=== PATIENT | female | born 1945 | race Caucasian/White ===

== ENCOUNTER 2018-05-08 13:42 | Observation (INO) ==
[2018-05-08 15:24] LABS: PT Patient Result 10.4 SECS; Partial Thromboplastin Time 24.6 SECS (0-40)
[2018-05-08 15:34] LABS: % Iron Saturation 1.9 % (18-50); Alanine Aminotransferase 14 U/L (13-56); Albumin 3.7 G/DL (3.4-5.0); Alkaline Phosphatase 41 U/L (45-117); Aspartate Amino Transferase 9 U/L (0-37); Bilirubin,Total < 0.39 MG/DL (0.2-1.0); Blood Urea Nitrogen 15 MG/DL (7-18); Calcium 8.3 MG/DL (8.5-10.1); Ferritin 2.4 ng/ml (8-252); Glucose 83 MG/DL (74-106); Iron 9 UG/DL (50-170); Iron Binding Capacity 486 UG/DL (250-450); Osmolality,Calculated 282.1 MOS/KG (273-304); Potassium 3.8 MMOL/L (3.5-5.1); Sodium 142 MMOL/L (136-145); Total Protein 6.8 G/DL (6.4-8.3)
[2018-05-08 15:39] LABS: Basophils % 0.5 % (0.0-0.8); Eosinophils % 0.7 % (0.00-10.9); Hematocrit 25.7 VOL% (35.7-47.0); Hemoglobin 6.8 GM/DL (12.0-16.0); Immature Granulocytes % 0.5 %; Immature Granulocytes Absolute 0.03 #; Lymphocytes # 1.5 10*3/uL (1.4-4.0); Lymphocytes % 25.1 % (21.3-54.2); Mean Corpuscular HGB Conc 26.5 GM/DL (32-36); Mean Corpuscular Hemoglobin 17 PG (27-34); Mean Corpuscular Volume 63.1 FL (87-102); Mean Platelet Volume 9.6 FL (9.6-12.0); Monocytes # 0.5 10*3/uL (0.11-0.8); Monocytes % 8.5 % (1.7-12.7); Neutrophils # 3.8 10*3/uL (1.4-7.4); Neutrophils % 64.7 % (38.7-73.9); Platelet Count 420 T/CUMM (130-400); Red Blood Count 4.07 MC/CUMM (3.8-5.5); Red Cell Distribution Width 21.7 % (9.3-17.3); White Blood Count 5.9 T/CUMM (4-12)
[2018-05-08] MEDS ORDERED: SODIUM CHLORIDE 0.9% 1,000 ML IV PRN (16:37)
[2018-05-08] MEDS ORDERED: ACETAMINOPHEN 325 MG TABLET PO PRN (16:39)
[2018-05-08] MEDS ORDERED: ONDANSETRON 4 MG/2 ML VIAL IV PRN (16:39)
[2018-05-08] MEDS ORDERED: DICYCLOMINE 10 MG CAPSULE PO PRN (16:46)
[2018-05-08] MEDS ORDERED: traMADol 50 MG TABLET PO PRN (16:46)
[2018-05-08 17:03] LABS: Hypochromasia 2+; Ovalocytes Few; Poikilocytosis Slight; Polychromasia Few
[2018-05-08 17:04] LABS: Microcytosis 1+
[2018-05-08 17:06] LABS: Anisocytosis 1+; Platelet Estimate Normal
[2018-05-08] MEDS: FERROUS SULFATE 325 MG TABLET PO SCH (20:40)
[2018-05-08] MEDS ORDERED: TEMAZEPAM 15 MG CAPSULE PO SCH (21:00)
[2018-05-09 05:16] LABS: Basophils % 0.5 % (0.0-0.8); Eosinophils # 0.1 10*3/uL (0.0-0.87); Eosinophils % 1.3 % (0.00-10.9); Hematocrit 28.8 VOL% (35.7-47.0); Hemoglobin 8.3 GM/DL (12.0-16.0); Immature Granulocytes % 0.2 %; Immature Granulocytes Absolute 0.01 #; Lymphocytes # 1.8 10*3/uL (1.4-4.0); Lymphocytes % 29.2 % (21.3-54.2); Mean Corpuscular HGB Conc 28.8 GM/DL (32-36); Mean Corpuscular Hemoglobin 19 PG (27-34); Mean Corpuscular Volume 67.1 FL (87-102); Mean Platelet Volume 9.6 FL (9.6-12.0); Monocytes # 0.5 10*3/uL (0.11-0.8); Monocytes % 8.6 % (1.7-12.7); Neutrophils # 3.8 10*3/uL (1.4-7.4); Neutrophils % 60.2 % (38.7-73.9); Platelet Count 341 T/CUMM (130-400); Red Blood Count 4.29 MC/CUMM (3.8-5.5); Red Cell Distribution Width 24.9 % (9.3-17.3); White Blood Count 6.3 T/CUMM (4-12)
[2018-05-09 05:32] LABS: Calcium 8.4 MG/DL (8.5-10.1); Osmolality,Calculated 281.3 MOS/KG (273-304); Potassium 4.1 MMOL/L (3.5-5.1)
[2018-05-09 05:39] LABS: Band Neutrophils 1 % (0-10); Eosinophils 1 % (0-10); Hypochromasia 1+; Lymphocytes 26 % (20-55); Platelet Estimate Adequate; Segmented Neutrophils 65 % (50-85); Total Cells Counted 100
[2018-05-09 05:40] LABS: Microcytosis 1+
[2018-05-09 08:35] VITALS: BP 167/78
[2018-05-09] MEDS: FERROUS SULFATE 325 MG TABLET PO SCH (08:37)
[2018-05-09] MEDS ORDERED: ATORVASTATIN 40 MG TABLET PO SCH (09:00)
[2018-05-09] MEDS ORDERED: PANTOPRAZOLE 40 MG TABLET PO SCH (09:00)
[2018-05-09] MEDS ORDERED: POLYETHYLENE GLYCOL POWDER 17 GM PACK PO SCH (09:00)
[2018-05-09] MEDS ORDERED: FLUoxetine 20 MG CAPSULE PO SCH (09:00)
[2018-05-09] MEDS ORDERED: LOSARTAN 50 MG TABLET PO SCH (09:00)
[2018-05-09] MEDS ORDERED: ASPIRIN EC 81 MG TABLET PO SCH (09:00)
== END 2018-05-09 12:29 | disposition home or self-care (01) ==
LOC: N.ED 13:42 → INTOOBSV 15:48 → N.EDINP 15:48 → N.5E 16:41
PROVIDERS: ADMIT Internal Medicine Cardiovascular Disease; ATTEND Internal Medicine Cardiovascular Disease

== ENCOUNTER 2019-08-19 15:09 | Observation (INO) ==
[2019-08-19 16:15] LABS: Basophils % 0.5 % (0.0-0.8); Eosinophils # 0.1 10*3/uL (0.0-0.87); Eosinophils % 1.1 % (0.00-10.9); Hematocrit 42.1 VOL% (35.7-47.0); Hemoglobin 13.6 GM/DL (12.0-16.0); Immature Granulocytes % 0.3 %; Immature Granulocytes Absolute 0.02 #; Lymphocytes # 2.3 10*3/uL (1.4-4.0); Lymphocytes % 28.4 % (21.3-54.2); Mean Corpuscular HGB Conc 32.3 GM/DL (32-36); Mean Corpuscular Volume 88.6 FL (87-102); Monocytes % 7.5 % (1.7-12.7); Neutrophils % 62.2 % (38.7-73.9); Platelet Count 252 T/CUMM (130-400); Red Blood Count 4.75 MC/CUMM (3.8-5.5); Red Cell Distribution Width 13.9 % (9.3-17.3)
[2019-08-19 16:21] LABS: Alanine Aminotransferase 16 U/L (13-56); Albumin 3.3 G/DL (3.4-5.0); Alkaline Phosphatase 51 U/L (45-117); Aspartate Amino Transferase 18 U/L (0-37); Bilirubin,Total < 0.39 MG/DL (0.2-1.0); Blood Urea Nitrogen 11 MG/DL (7-18); Calcium 8.8 MG/DL (8.5-10.1); Estimated Glom Filtration Rate 82 ML/MIN; Glucose 102 MG/DL (74-106); Osmolality,Calculated 281.1 MOS/KG (273-304); Total Protein 6.9 G/DL (6.4-8.3)
[2019-08-19 16:29] LABS: PT Patient Result 10.5 SECS (9.8-11.9); Partial Thromboplastin Time 29.3 SECS (23.9-33.8)
[2019-08-19] MEDS ORDERED: LABETALOL 20 MG/4 ML SYRINGE IV PRN (16:59)
[2019-08-19] MEDS ORDERED: NICOTINE 21 MG/24 HR PATCH TRANSDERM PRN (17:04)
[2019-08-19] MEDS ORDERED: GLUCAGON 1 MG VIAL IM PRN (17:04)
[2019-08-19] MEDS ORDERED: DEXTROSE 50% 25 GM/50 ML VIAL IV PRN (17:04)
[2019-08-19] MEDS ORDERED: ALBUTEROL 2.5 MG/3 ML NEB RESP TX PRN (17:05)
[2019-08-19] MEDS ORDERED: DICYCLOMINE 10 MG CAPSULE PO PRN (17:05)
[2019-08-19] MEDS ORDERED: ASPIRIN EC 325 MG TABLET PO STA (17:06)
[2019-08-19 17:35] LABS: Risk Ratio 6.83; VLDL CHOLESTEROL 78.6 MG/DL
[2019-08-19 17:36] LABS: Barbiturates Screen,Urine Negative (Negative); Benzodiazepines Screen,Urine Negative (Negative); Cannabinoid Screen,Urine Negative (Negative); Opiate Screen,Urine Negative (Negative); Phencyclidine Screen,Urine Negative (Negative)
[2019-08-19 17:51] LABS: Amorphous Crystals,Urine Occasional /HPF (Few); Apearance,Urine CLEAR (Clear); Bilirubin,Urine Negative (Negative); Blood, Urine Small mg/dL (Negative); Glucose,Urine (UA) Negative (Negative); Ketones,Urine Negative (Negative); Mucus,Urine Occasional /LPF (Occasional); Nitrite,Urine Negative (Negative); Protein,Urine Negative; RBC,Urine 2 /HPF (0-4); Squamous Epithelial Cell,Urine Occasional /HPF (0-10); Urine Color Yellow (Yellow); Urine Specific Gravity 1.009 (1.001-1.035); Urine Urobilinogen < 2.0 EU/DL (0.2-1.0); WBC,Urine 6 /HPF (0-6)
[2019-08-19] MEDS ORDERED: FLUoxetine 20 MG CAPSULE PO SCH (21:00)
[2019-08-19] MEDS ORDERED: TOPIRAMATE 25 MG TABLET PO SCH (21:00)
[2019-08-19] MEDS ORDERED: PANTOPRAZOLE 40 MG TABLET PO SCH (21:00)
[2019-08-19] MEDS ORDERED: ENOXAPARIN 40 MG/0.4 ML SYRINGE SUBCUT SCH (21:00)
[2019-08-19] MEDS ORDERED: TEMAZEPAM 15 MG CAPSULE PO SCH (21:00)
[2019-08-20] MEDS ORDERED: ROSUVASTATIN 20 MG TABLET PO SCH ×2 (09:00→21:00)
[2019-08-20] MEDS ORDERED: LOSARTAN 50 MG TABLET PO SCH (09:00)
[2019-08-20] MEDS ORDERED: ASPIRIN 325 MG TABLET PO SCH (09:00)
[2019-08-20] MEDS ORDERED: LOSARTAN 50 MG TABLET PO ONE (09:33)
[2019-08-20 12:37] VITALS: BP 178/90
[2019-08-20] MEDS ORDERED: amLODIPine 10 MG TABLET PO SCH (15:00)
[2019-08-21] MEDS ORDERED: LOSARTAN 50 MG TABLET PO SCH (09:00)
[2019-08-24] MEDS ORDERED: ERGOCALCIFEROL 50,000 UNIT CAPSULE PO SCH (09:00)
== END 2019-08-20 16:01 | disposition home or self-care (01) ==
LOC: EDUNIT# → EDBD → N.ED 15:09 → N.EDINP 15:09 → N.TELES 17:58
PROVIDERS: ADMIT Internal Medicine; ATTEND Internal Medicine

== ENCOUNTER 2022-04-05 21:03 | Inpatient (IN) ==
[2022-04-05] MEDS ORDERED: fentaNYL 100 MCG/2 ML VIAL IV STA (21:45)
[2022-04-05 22:09] LABS: Basophils % 0.4 % (0.0-0.8); Eosinophils % 0.1 % (0.00-10.9); Hematocrit 30.4 VOL% (35.7-47.0); Hemoglobin 9.3 GM/DL (12.0-16.0); Immature Granulocytes % 0.5 %; Immature Granulocytes Absolute 0.05 #; Lymphocytes # 1.3 10*3/uL (1.4-4.0); Lymphocytes % 12.9 % (21.3-54.2); Mean Corpuscular HGB Conc 30.6 GM/DL (32-36); Mean Corpuscular Volume 79.8 FL (87-102); Mean Platelet Volume 9.4 FL (9.6-12.0); Monocytes # 0.6 10*3/uL (0.11-0.8); Monocytes % 5.5 % (1.7-12.7); Neutrophils % 80.6 % (38.7-73.9); Platelet Count 267 T/CUMM (130-400); Red Blood Count 3.81 MC/CUMM (3.8-5.5); Red Cell Distribution Width 18.6 % (9.3-17.3)
[2022-04-05 22:34] LABS: PT Patient Result 11.2 SECS (10.1-12.1); Partial Thromboplastin Time 22.9 SECS (23.7-32.9)
[2022-04-05 22:37] LABS: Osmolality,Calculated 279.4 MOS/KG (273-304); Potassium 3.8 MMOL/L (3.5-5.1)
[2022-04-06] MEDS ORDERED: guaiFENesin/DM ER 600-30 MG TABLET PO PRN (00:36)
[2022-04-06] MEDS ORDERED: diphenhydrAMINE CAP 25 MG CAPSULE PO PRN (00:36)
[2022-04-06] MEDS ORDERED: NICOTINE 21 MG/24 HR PATCH TRANSDERM PRN (00:36)
[2022-04-06] MEDS ORDERED: hydrALAZINE 20 MG/1 ML VIAL IV PRN (00:36)
[2022-04-06] MEDS ORDERED: ACETAMINOPHEN 325 MG TABLET PO PRN (00:36)
[2022-04-06] MEDS ORDERED: ONDANSETRON 4 MG/2 ML VIAL IV PRN (00:36)
[2022-04-06] MEDS ORDERED: MORPHINE 2 MG/1 ML SYRINGE IV PRN ×2 (00:36→11:18)
[2022-04-06] MEDS ORDERED: ZALEPLON 5 MG CAPSULE PO PRN (00:36)
[2022-04-06] MEDS ORDERED: MORPHINE 2 MG/1 ML SYRINGE IV STA (00:46)
[2022-04-06] MEDS: DEXTROSE 5% NACL 0.9% 1,000 ML IV SCH ×2 (02:00→18:21)
[2022-04-06 03:49] LABS: Basophils % 0.2 % (0.0-0.8); Hematocrit 27.6 VOL% (35.7-47.0); Hemoglobin 8.5 GM/DL (12.0-16.0); Immature Granulocytes % 0.4 %; Immature Granulocytes Absolute 0.04 #; Lymphocytes # 1.1 10*3/uL (1.4-4.0); Lymphocytes % 11.1 % (21.3-54.2); Mean Corpuscular HGB Conc 30.8 GM/DL (32-36); Mean Corpuscular Volume 79.1 FL (87-102); Mean Platelet Volume 9.5 FL (9.6-12.0); Monocytes # 0.7 10*3/uL (0.11-0.8); Monocytes % 7.1 % (1.7-12.7); Neutrophils % 81.2 % (38.7-73.9); Platelet Count 247 T/CUMM (130-400); Red Blood Count 3.49 MC/CUMM (3.8-5.5); Red Cell Distribution Width 18.3 % (9.3-17.3); White Blood Count 10.05 T/CUMM (4-12)
[2022-04-06 04:05] LABS: Calcium 8.3 MG/DL (8.5-10.1); Potassium 3.5 MMOL/L (3.5-5.1)
[2022-04-06] MEDS ORDERED: GABAPENTIN 400 MG CAPSULE PO ONE (08:21)
[2022-04-06] MEDS ORDERED: TOPIRAMATE 25 MG TABLET PO ONE (08:22)
[2022-04-06] MEDS ORDERED: ALBUTEROL/IPRATROPIUM 3 ML NEB RESP TX ONE (09:13)
[2022-04-06] MEDS ORDERED: DEXAMETHASONE 4 MG/1 ML VIAL ONE ×2 (09:30→10:59)
[2022-04-06] MEDS ORDERED: LIDOCAINE 1% 5 ML VIAL ONE ×3 (09:30→10:59)
[2022-04-06] MEDS ORDERED: MIDAZOLAM 2 MG/2 ML VIAL ONE (09:30)
[2022-04-06] MEDS ORDERED: ROPIVACAINE 0.5% 30 ML VIAL ONE ×2 (09:31→10:59)
[2022-04-06] MEDS ORDERED: propofoL 200 MG/20 ML VIAL IV ONE (09:34)
[2022-04-06] MEDS ORDERED: LIDOCAINE 2% 5 ML VIAL ONE (09:34)
[2022-04-06] MEDS ORDERED: ROCURONIUM 50 MG/5 ML VIAL IV ONE (09:34)
[2022-04-06] MEDS ORDERED: CLINDAMYCIN INJ 900 MG/50 ML PREMIX IV ONE ×2 (09:42→14:00)
[2022-04-06] MEDS ORDERED: ePHEDrine 50 MG/ML VIAL ONE (10:11)
[2022-04-06] MEDS ORDERED: MAGNESIUM HYDROXIDE SUSP 30 ML UDCUP PO PRN (10:15)
[2022-04-06] MEDS ORDERED: BISACODYL 10 MG SUPP RECTAL PRN (10:15)
[2022-04-06] MEDS ORDERED: LACTULOSE 20 GM/30 ML UDCUP PO PRN (10:15)
[2022-04-06] MEDS ORDERED: oxyCODONE IR 5 MG TABLET PO PRN ×3 (10:15→10:19)
[2022-04-06] MEDS ORDERED: fentaNYL 100 MCG/2 ML VIAL ONE (10:19)
[2022-04-06] MEDS ORDERED: SEVOFLURANE 1 UNIT/15 MINUTE INH ONE (10:35)
[2022-04-06] MEDS ORDERED: PHENYLEPHRINE 1 MG/10 ML SYRINGE IV ONE (10:39)
[2022-04-06] MEDS ORDERED: SODIUM CHLORIDE 0.9% 1,000 ML IV PRN (10:45)
[2022-04-06] MEDS ORDERED: SUGAMMADEX 200 MG/2 ML VIAL IV ONE (10:49)
[2022-04-06] MEDS: LOSARTAN 50 MG TABLET PO SCH (13:36)
[2022-04-06] MEDS: PANTOPRAZOLE 40 MG TABLET PO SCH (13:36)
[2022-04-06] MEDS: amLODIPine 10 MG TABLET PO SCH (13:36)
[2022-04-06] MEDS ORDERED: MAGNESIUM SULF RIDER 2 GM/50 ML PREMIX IV ONE (14:00)
[2022-04-06 15:19] LABS: Hematocrit 31.8 VOL% (35.7-47.0); Hemoglobin 9.9 GM/DL (12.0-16.0)
[2022-04-06] MEDS: oxyCODONE IR 5 MG TABLET PO PRN (16:27)
[2022-04-06] MEDS: LACTATED RINGERS 1,000 ML IV SCH (16:49)
[2022-04-06] MEDS: CLINDAMYCIN INJ 900 MG/50 ML PREMIX IV SCH ×2 (17:00→23:37)
[2022-04-06] MEDS: FLUoxetine 20 MG CAPSULE PO SCH (20:34)
[2022-04-07] MEDS: oxyCODONE IR 5 MG TABLET PO PRN ×3 (05:23→18:41)
[2022-04-07 05:52] LABS: Basophils % 0.1 % (0.0-0.8); Hematocrit 26.7 VOL% (35.7-47.0); Hemoglobin 8.3 GM/DL (12.0-16.0); Immature Granulocytes % 0.6 %; Immature Granulocytes Absolute 0.05 #; Lymphocytes # 1.4 10*3/uL (1.4-4.0); Lymphocytes % 16.1 % (21.3-54.2); Mean Corpuscular HGB Conc 31.1 GM/DL (32-36); Mean Corpuscular Volume 81.2 FL (87-102); Mean Platelet Volume 9.9 FL (9.6-12.0); Monocytes # 1.2 10*3/uL (0.11-0.8); Monocytes % 14.2 % (1.7-12.7); Platelet Count 194 T/CUMM (130-400); Red Blood Count 3.29 MC/CUMM (3.8-5.5); Red Cell Distribution Width 17.4 % (9.3-17.3); White Blood Count 8.36 T/CUMM (4-12)
[2022-04-07] MEDS: FONDAPARINUX 2.5 MG/0.5 ML SYRINGE SUBCUT SCH (05:54)
[2022-04-07 06:19] LABS: Calcium 8.2 MG/DL (8.5-10.1); Osmolality,Calculated 280.3 MOS/KG (273-304); Potassium 3.2 MMOL/L (3.5-5.1)
[2022-04-07 06:30] LABS: % Iron Saturation 5.6 % (18-50)
[2022-04-07 06:40] LABS: Alanine Aminotransferase 14 U/L (13-56); Albumin 2.8 G/DL (3.4-5.0); Alkaline Phosphatase 32 U/L (45-117); Aspartate Amino Transferase 15 U/L (0-37); Bilirubin,Total < 0.39 MG/DL (0.20-1.00); Blood Urea Nitrogen 9 MG/DL (7-18); Calcium 7.9 MG/DL (8.5-10.1); Carbon Dioxide 26 MMOL/L (21-32); Chloride 108 MMOL/L (98-107); Glucose 112 MG/DL (74-106); Osmolality,Calculated 278.4 MOS/KG (273-304); Potassium 3.3 MMOL/L (3.5-5.1); Sodium 140 MMOL/L (136-145); Total Protein 5.3 G/DL (6.4-8.2)
[2022-04-07] MEDS: PANTOPRAZOLE 40 MG TABLET PO SCH (08:51)
[2022-04-07] MEDS: LOSARTAN 50 MG TABLET PO SCH (08:53)
[2022-04-07] MEDS: amLODIPine 10 MG TABLET PO SCH (08:54)
[2022-04-07] MEDS: CLINDAMYCIN INJ 900 MG/50 ML PREMIX IV SCH (08:55)
[2022-04-07] MEDS: DEXTROSE 5% NACL 0.9% 1,000 ML IV SCH (09:15)
[2022-04-07] MEDS ORDERED: POTASSIUM CHLORIDE 20 MEQ TABLET PO ONE (10:15)
[2022-04-07] MEDS: LACTATED RINGERS 1,000 ML IV SCH (10:17)
[2022-04-07] MEDS: FERRIC GLUCONATE COMPLEX 125 MG in SODIUM CHLORIDE 0.9% 100 ML IV SCH (10:30)
[2022-04-07] MEDS: FLUoxetine 20 MG CAPSULE PO SCH (21:23)
[2022-04-08] MEDS: FONDAPARINUX 2.5 MG/0.5 ML SYRINGE SUBCUT SCH (05:14)
[2022-04-08 05:32] LABS: Basophils % 0.2 % (0.0-0.8); Eosinophils % 0.2 % (0.00-10.9); Hematocrit 25.5 VOL% (35.7-47.0); Immature Granulocytes % 0.5 %; Immature Granulocytes Absolute 0.05 #; Lymphocytes # 1.2 10*3/uL (1.4-4.0); Lymphocytes % 11.9 % (21.3-54.2); Mean Corpuscular HGB Conc 31.4 GM/DL (32-36); Mean Corpuscular Volume 79.9 FL (87-102); Mean Platelet Volume 9.7 FL (9.6-12.0); Monocytes # 1.2 10*3/uL (0.11-0.8); Monocytes % 11.7 % (1.7-12.7); Neutrophils % 75.5 % (38.7-73.9); Platelet Count 195 T/CUMM (130-400); Red Blood Count 3.19 MC/CUMM (3.8-5.5); Red Cell Distribution Width 17.8 % (9.3-17.3); White Blood Count 10.34 T/CUMM (4-12)
[2022-04-08 05:50] LABS: Calcium 8.5 MG/DL (8.5-10.1); Osmolality,Calculated 275.5 MOS/KG (273-304); Potassium 3.5 MMOL/L (3.5-5.1)
[2022-04-08] MEDS: amLODIPine 10 MG TABLET PO SCH (08:46)
[2022-04-08] MEDS: LOSARTAN 50 MG TABLET PO SCH (08:47)
[2022-04-08] MEDS: PANTOPRAZOLE 40 MG TABLET PO SCH (08:48)
[2022-04-08] MEDS: FERRIC GLUCONATE COMPLEX 125 MG in SODIUM CHLORIDE 0.9% 100 ML IV SCH (08:49)
[2022-04-08] MEDS: LACTATED RINGERS 1,000 ML IV SCH (09:51)
[2022-04-08] MEDS: FLUoxetine 20 MG CAPSULE PO SCH (20:15)
[2022-04-09 04:42] LABS: Basophils % 0.3 % (0.0-0.8); Eosinophils # 0.1 10*3/uL (0.0-0.87); Eosinophils % 0.6 % (0.00-10.9); Hematocrit 25.9 VOL% (35.7-47.0); Hemoglobin 8.1 GM/DL (12.0-16.0); Immature Granulocytes % 0.6 %; Immature Granulocytes Absolute 0.05 #; Lymphocytes # 1.3 10*3/uL (1.4-4.0); Lymphocytes % 14.8 % (21.3-54.2); Mean Corpuscular HGB Conc 31.3 GM/DL (32-36); Mean Corpuscular Volume 80.2 FL (87-102); Mean Platelet Volume 10.1 FL (9.6-12.0); Monocytes # 0.9 10*3/uL (0.11-0.8); Monocytes % 10.6 % (1.7-12.7); Neutrophils % 73.1 % (38.7-73.9); Platelet Count 221 T/CUMM (130-400); Red Blood Count 3.23 MC/CUMM (3.8-5.5); Red Cell Distribution Width 17.7 % (9.3-17.3); White Blood Count 8.58 T/CUMM (4-12)
[2022-04-09 05:07] LABS: Calcium 8.4 MG/DL (8.5-10.1); Osmolality,Calculated 278.4 MOS/KG (273-304); Potassium 3.4 MMOL/L (3.5-5.1)
[2022-04-09] MEDS: FONDAPARINUX 2.5 MG/0.5 ML SYRINGE SUBCUT SCH (05:58)
[2022-04-09] MEDS: oxyCODONE IR 5 MG TABLET PO PRN (07:23)
[2022-04-09 08:08] VITALS: BP 166/93
[2022-04-09] MEDS: amLODIPine 10 MG TABLET PO SCH (09:10)
[2022-04-09] MEDS: PANTOPRAZOLE 40 MG TABLET PO SCH (09:10)
[2022-04-09] MEDS: LOSARTAN 50 MG TABLET PO SCH (09:10)
[2022-04-09] MEDS: FERRIC GLUCONATE COMPLEX 125 MG in SODIUM CHLORIDE 0.9% 100 ML IV SCH (09:11)
== END 2022-04-09 10:55 | disposition swing bed (61) | DRG 482 ==
LOC: N.ED 21:03 → N.EDINP 04-06 00:36 → SUATTDRO 04-06 00:36 → N.3E 04-06 08:22
PROVIDERS: ADMIT Internal Medicine Nephrology; ATTEND Internal Medicine